=== PATIENT | male | born 1990 | race Caucasian/White ===

== ENCOUNTER 2020-08-23 22:14 | Emergency (ER) | payer BC ==
[~2020-08-23] VITALS: Ht 175.3 cm; Wt 109.3 kg
[2020-08-23 22:18] VITALS: BP 124/83
[2020-08-24] MEDS ORDERED: KETOROLAC 60 MG/2 ML VIAL IM ONE (00:15)
[2020-08-24] MEDS ORDERED: TRAM50TA3 PO (00:28)
[2020-08-24] MEDS ORDERED: IBUP-2213 PO (00:28)
[2020-08-24 00:45] VITALS: BP 124/83
== END 2020-08-24 00:45 | disposition home or self-care (01) ==
LOC: MED 22:14
DX: S20.312A Abrasion of left front wall of thorax, initial encounter (principal); V18.2XXA Unspecified pedal cyclist injured in noncollision transport accident in nontraffic accident, initial encounter; Y93.89 Activity, other specified; Y92.89 Other specified places as the place of occurrence of the external cause; Y99.8 Other external cause status
CPT/HCPCS: 71045; 96372; 99283; J1885

== ENCOUNTER 2021-03-24 09:39 | Emergency (ER) | payer BC ==
[~2021-03-24] VITALS: Ht 175.3 cm; Wt 102.1 kg
[~2021-03-24 09:39] MED LIST: IBUP-2213 PO; TRAM50TA3 PO
[2021-03-24 09:51] VITALS: BP 159/91
--- NOTE | 2021-03-24 09:52 | NUR ---
PT AMBULATED TO BED 7
--- NOTE | 2021-03-24 09:56 | NUR ---
DR. BLACK BEDSIDE EVALUATING PT
--- NOTE | 2021-03-24 09:59 | NUR ---
30 Y/O M BIB SELF FROM HOME, C/O CHEST PAIN ON L SIDE THAT RADIATES TO HIS L SHOULDER/UPPER ARM. STABBING LIKE PAIN THAT IS CURRENTLY 8/10 PAIN FOR 3-4 DAYS. PT ALSO STATED HE WOKE UP THIS AM WITH A DRY COUGH. PT DENIES CHILLS, FEVER OR SOB. DENIES N/V/D. BREATH SOUNDS CLEAR UPON ASSESSMENT, CAP REFILL <2 SECONDS, S1/S2 HEARD, AND PT EKG SHOWS NSR PMH: DENIES NKA MED: ADVIL 2 PO (LAST DOSE 03/23/21 1200)
--- NOTE | 2021-03-24 10:13 | NUR ---
XRAY BEDSIDE WITH PATIENT
--- NOTE | 2021-03-24 10:24 | NUR ---
LAB BEDSIDE COLLECTING BLOODWORK
[2021-03-24 10:36] LABS: BASOPHILS % (AUTO) 0.4 % (0.0-2.0); EOSINOPHILS # (AUTO) 0.1 K/uL (0-0.4); EOSINOPHILS % (AUTO) 1.6 % (0.0-4.0); HEMATOCRIT 45.9 % (36-52); HEMOGLOBIN 15.2 g/dL (12.0-18.0); LYMPHOCYTES # (AUTO) 2.2 K/uL (2.0-11.5); LYMPHOCYTES % (AUTO) 23.9 % (20.5-51.1); MEAN CORPUSCULAR HEMOGLOBIN 30 pg (27-31); MEAN CORPUSCULAR HGB CONC 33 g/dL (33-37); MEAN CORPUSCULAR VOLUME 89.1 fL (80-94); MONOCYTES # (AUTO) 0.5 K/uL (0.8-1.0); MONOCYTES % (AUTO) 5.6 % (1.7-9.3); NEUTROPHILS # (AUTO) 6.3 K/uL (1.8-7.7); NEUTROPHILS % (AUTO) 68.5 % (42.2-75.2); PLATELET COUNT (AUTO) 286 K/uL (140-450); RED BLOOD CELL COUNT(AUTO) 5.15 MIL/uL (4.20-6.10); RED CELL DISTRIBUTION WIDTH 13.2 % (11.6-13.7); WHITE BLOOD COUNT (AUTO) 9.1 K/uL (4.8-10.8)
[2021-03-24 10:56] LABS: ALBUMIN 3.9 g/dL (3.4-5.0); ANION GAP 12.3 (8-16); CARBON DIOXIDE 28.2 mmol/L (21-32); CREATININE 0.9 mg/dL (0.6-1.3); POTASSIUM 4.5 mmol/L (3.5-5.1); TOTAL BILIRUBIN 0.5 mg/dL (0.0-1.0)
[2021-03-24] MEDS ORDERED: IBUP-2213 PO (11:31)
--- NOTE | 2021-03-24 12:00 | NUR ---
Patient discharged with v/s stable. Written and verbal after care instructions ABOUT NONSPECIFIC CHEST PAIN given and explained. Patient alert, oriented and verbalized understanding of instructions. Ambulatory with steady gait. All questions addressed prior to discharge. ID band removed. Patient advised to follow up with PMD. Rx of IBUPROFEN given. Patient educated on indication of medication including possible reaction and side effects. Opportunity to ask questions provided and answered.
[2021-03-24 12:01] VITALS: BP 133/86
== END 2021-03-24 12:27 | disposition home or self-care (01) ==
LOC: MED 09:39
DX: R07.89 Other chest pain (principal); R05.9 Cough, unspecified; F17.210 Nicotine dependence, cigarettes, uncomplicated; Z71.6 Tobacco abuse counseling
CPT/HCPCS: 36415; 71045; 80053; 84484; 85025; 93005; 99285; Q0092